=== PATIENT | female | born 1970 | race Hispanic/Latino ===

== ENCOUNTER 2023-11-30 13:38 | Outpatient (CLI) | payer OTHER | END 2023-11-30 13:39 | disposition home or self-care (01) | LOC: CJX 13:38 | PROVIDERS: ATTEND Student in an Organized Health Care Education/Training Program | DX: N63.12 Unspecified lump in the right breast, upper inner quadrant (principal); N64.89 Other specified disorders of breast | CPT/HCPCS: 76642; 77066; G0279 ==

== ENCOUNTER → 2023-12-28 | Day surgery (SDC) | payer OTHER | LOC: CSHULT 12:36 | PROVIDERS: ATTEND Student in an Organized Health Care Education/Training Program | PROC: 0HB5XZX Excision of Chest Skin, External Approach, Diagnostic (ICD-10-PCS; principal; 2023-12-28) | DX: N60.21 Fibroadenosis of right breast (principal); N63.12 Unspecified lump in the right breast, upper inner quadrant; R92.8 Other abnormal and inconclusive findings on diagnostic imaging of breast | CPT/HCPCS: 19083; 88305; 88341; 88342 ==